=== PATIENT | female | born 1970 | race Caucasian/White ===

== ENCOUNTER 2018-06-08 10:00 | Outpatient (CLI) | payer MEDICARE, MEDICAID, SELFPAY | END 2018-06-08 10:01 | PROVIDERS: PCP Family Medicine; Visit Provider Student in an Organized Health Care Education/Training Program | DX: M16.12 Unilateral primary osteoarthritis, left hip (principal) | CPT/HCPCS: 99213 ==

== ENCOUNTER 2018-06-18 07:39 | Outpatient (CLI) | payer MEDICARE, MEDICAID, SELFPAY ==
--- NOTE | 2018-06-18 08:41 | DI.MRI_ITS ---
SYMPTOMS/DIAGNOSIS: LEFT HIP PAIN, FEMOROACETABULAR IMPINGEMENT, LEFT IP, M25.852 MRI OF THE PELVIS AND LEFT HIP: Comparison is made with plain films dated April,. T1 and fat-suppressed T2 axial, T1 and STIR coronal sequences were performed with a field of view including both hips. Fat-suppressed T2 sagittal and fat-suppressed proton density coronal sequences were performed through the left hip. The marrow signal is normal throughout. No joint effusions are seen. The muscular signal and tendon signal are also normal. The bladder is unremarkable. The patient is status post hysterectomy. No labral defects or cartilage defects are identified. IMPRESSION: Negative MRI of the pelvis and left hip.
== END 2018-06-18 07:59 ==
PROVIDERS: PCP Family Medicine; Visit Provider Student in an Organized Health Care Education/Training Program
DX: M25.552 Pain in left hip (principal); M25.852 Other specified joint disorders, left hip
CPT/HCPCS: 73721

== ENCOUNTER 2019-02-26 11:42 | Outpatient (REF) | payer MEDICARE, MEDICAID, SELFPAY ==
[2019-02-26 22:10] LABS: HCT 43.1 % (36.0-46.0); HGB 14.2 g/dL (12.0-15.5); Mean Corp. HGB Concentration 32.9 g/dL (32.0-36.0); Mean Corpuscular Volume 90.9 fL (80-95); Mean Platelet Volume 11.5 fL (8.0-11.0); Platelet Count 256 x1000/uL (130-400); RBC 4.74 m/cumm (4.00-5.20); RBC Distribution Width 13.5 % (11.7-14.6); White Blood Cell Count 5.74 k/cumm (4.4-10.8)
[2019-02-26 22:23] LABS: ALT 27 U/L (12-78); AST 21 U/L (15-37); Alkaline Phosphatase 105 U/L (46-116); Anion Gap 12.6 mmol/L (3-11); BUN 11 mg/dL (7-18); Bilirubin, Total 0.4 mg/dL (0.2-1.0); CO2 28.4 mmol/L (21.0-32.0); CREATININE 0.99 mg/dL (0.55-1.02); Calcium 9.5 mg/dL (8.5-10.1); Chloride 101 mmol/L (98-107); Cholesterol 278 mg/dL (50-200); Estimated GFR 59.87 (mL/min/1.73m2); Glucose 72 mg/dL (70-100); HDL Cholesterol 70 mg/dL (40-60); LDL CHOLESTEROL 176 mg/dL (<100); Sodium 142 mmol/L (136-145); Total Protein 7.2 g/dL (6.4-8.2); Triglyceride 124 mg/dL (30-150)
== END 2019-02-26 12:02 ==
LOC: NCHCN 11:42
PROVIDERS: PCP Family Medicine; Visit Provider Specialist/Technologist Athletic Trainer
DX: E03.9 Hypothyroidism, unspecified (principal); Z01.812 Encounter for preprocedural laboratory examination
CPT/HCPCS: 80053; 80061; 83721; 85027

== ENCOUNTER 2019-05-16 10:54 | Outpatient (REF) | payer MEDICARE, MEDICAID, SELFPAY ==
[2019-05-16 21:02] LABS: HCT 41.6 % (36.0-46.0); HGB 13.7 g/dL (12.0-15.5); Mean Corp. HGB Concentration 32.9 g/dL (32.0-36.0); Mean Corpuscular Hemoglobin 30.1 pg (27.0-33.0); Mean Corpuscular Volume 91.4 fL (80-95); Mean Platelet Volume 11.4 fL (8.0-11.0); Platelet Count 268 x1000/uL (130-400); RBC 4.55 m/cumm (4.00-5.20); White Blood Cell Count 4.96 k/cumm (4.4-10.8)
[2019-05-16 21:23] LABS: ALT 24 U/L (12-78); AST 12 U/L (15-37); Albumin 4.1 g/dL (3.4-5.0); Alkaline Phosphatase 94 U/L (46-116); Anion Gap 11.8 mmol/L (3-11); BUN 11 mg/dL (7-18); Bilirubin, Total 0.2 mg/dL (0.2-1.0); CO2 25.2 mmol/L (21.0-32.0); CREATININE 0.89 mg/dL (0.55-1.02); Calculated LDL 175 mg/dL; Chloride 106 mmol/L (98-107); Cholesterol 254 mg/dL (50-200); Glucose 79 mg/dL (70-100); HDL Cholesterol 63 mg/dL (40-60); Potassium 4.2 mmol/L (3.5-5.1); Sodium 143 mmol/L (136-145); Total Protein 7.1 g/dL (6.4-8.2); Triglyceride 80 mg/dL (30-150)
[2019-05-16 21:34] LABS: Lipase 87 U/L (73-393)
== END 2019-05-16 11:14 ==
LOC: NCHCN 10:54
PROVIDERS: PCP Family Medicine; Visit Provider Family Medicine
DX: R10.9 Unspecified abdominal pain (principal)
CPT/HCPCS: 80053; 80061; 83690; 83721; 85027

== ENCOUNTER → 2019-11-07 09:37 | Outpatient (BNVA) | payer MEDICARE, MEDICAID, SELFPAY | PROVIDERS: PCP Family Medicine; Referring Provider Family Medicine; Visit Provider Physical Therapy Assistant | DX: K21.9 Gastro-esophageal reflux disease without esophagitis (principal); R10.13 Epigastric pain | CPT/HCPCS: 99213 ==

== ENCOUNTER 2019-11-08 10:35 | Day surgery (SDC) | payer MEDICARE, MEDICAID, SELFPAY ==
[2019-11-07 11:06] VITALS: BP 143/99; PULSE 73; RESP 18; TEMP 36.5
[2019-11-08 10:54] VITALS: BP 128/92; PULSE 78; RESP 16; TEMP 36.5; O2SAT 97
[2019-11-08] MEDS: Lactated Ringers 1,000 ML 80 ML IV (11:13)
--- NOTE | 2019-11-08 12:08 | W.PM.DSUDISC ---
Discharge Plan Disposition Patient Disposition: HOME Condition: Good Discharge Details Reason For Visit: EGD Attending Provider: Daniella Oglesby Primary Care Provider: Elvira Curiel Home Meds and New Rx's Prescriptions: Continued omeprazole 40 mg capsule,delayed release(DR/EC) 40 mg PO BID RF: 0 bismuth subsalicylate [Pepto-Bismol] 262 mg/15 mL suspension 524 mg PO Q30-60M PRNRF: 0 gabapentin 600 MG tablet 600 mg PO BID RF: 0 ropinirole 1 MG tablet 1 mg PO HS RF: 0 ibuprofen 800 MG tablet 800 mg PO TID RF: 0 amitriptyline 50 MG tablet 50 mg PO HS RF: 0 acetaminophen 500 MG tablet 1,000 mg PO Q 8 HR RF: 0 promethazine 25 MG tablet 25 mg PO PRN RF: 0 Women's Daily Formula 1 EACH tablet 1 tab-cap PO DAILY RF: 0 lidocaine 15 GM cream 15 gm Topical Q4H PRN 30 Days Qty: 1 RF: 5 citalopram [Celexa] 20 mg tablet 20 mg PO DAILY RF: 0 methylphenidate HCl [Ritalin] 20 mg tablet 20 mg PO BID RF: 0 Discharge Instructions Additional Instructions: Findings: Your EGD looked normal. Routine biopsies were done. Follow up: My office will contact you with biopsy results and make further plans as indicated. Please call if you develop: fevers >101.5 Nausea or Vomiting Abdominal pain that is not transient DAY SURGERY UNIT POST EGD INSTRUCTIONS 1. Because there will be medication in your system for the next 24 hours, you may feel a little sleepy. Your coordination will be affected. Therefore: a. Do not drive or operate dangerous equipment for 24 hours. b. Do not drink alcohol beverages for 24 hours (not even beer). c. Plan to go home and rest for the day. 2. Generally there are no restrictions on your activity after a day or so has gone by, but you may feel a bit fatigued for a few days. 3 After you arrive home you may have a light meal and return to a normal diet as you can tolerate it without feeling sick to your stomach. 4. After surgery, you may feel pain or discomfort. This should be only transient, but if it persists please contact your doctor. 5. If there are any questions regarding the findings of your procedure, please feel free to contact your doctor. 6. If you are unable to contact your doctor with a problem, contact the hospital at [phone]. 7. Continue all your regular medications unless directed otherwise. I understand the above instructions and have no questions. Signature of Patient or Responsible Adult Escort Date/Time Name of Responsible Adult Escort Signature of Nurse Date/Time Activity:: Activity as Tolerated Diet:: As Tolerated Discharge Orders Discharge Orders: Discharge Order (Routine); Ordered 11/08/19 Ordered By: Daniella Oglesby DS: Diagnosis Discharge Diagnosis (1) Epigastric pain: Status: Acute
--- NOTE | 2019-11-08 12:30 | STOM_PTH ---
PATIENT: Sade Zavala LOC: [facility] U#:[id number] AGE/SX: 49/F ROOM: RE11/08/[address]: Daniella Oglesby MD : 1970 BED: DIS: 11/08/2019 SPEC #: [id number] RECD: 11/08/19 13:14 STATUS: QAMAR REQ #: [id number] ROSALVA: 11/08/19 12:[address]: Daniella Oglesby DEPT: Surgical Specimen RECD BY: Gali Gardner ENTERED: 11/08/19 13:15 SP TYPE: STOMACH OTHR DR: Elvira Curiel Tissues: 1 - BIOPSY BOWEL 2 - STOMACH BIOPSY Procedures: GROSS AND MICRO LEVEL 4 IMMUNOPEROXIDASE STAIN Comments: [id number]
[2019-11-08 13:13] VITALS: BP 130/89; PULSE 66; RESP 16; TEMP 36.6; O2SAT 96
--- NOTE | 2019-11-08 14:53 | ENDO_ITS ---
43DATE OF PROCEDURE: November 08, 2019 PREOPERATIVE DIAGNOSIS: Epigastric pain. POSTOPERATIVE DIAGNOSIS: Normal EGD. PROCEDURE: EGD with duodenal and gastric biopsies. SURGEON: Daniella Oglesby M.D. ANESTHESIA: General. INDICATIONS: This is a 49-year-old woman who complains of epigastric pain, nausea and vomiting. She has reportedly had a normal CT scan. Results have been requested. The pain starts shortly after ea ting and can last for up to an hour. She does drink up to four 12-packs of Diet Coke daily. PROCEDURE: She was placed in the left lateral decubitus position. Propofol was titrated to sedation . The scope was advanced into her esophagus under direct visualization and down into the stomach and duodenum. There was no duodenitis or ulcers noted. The second portion of the duodenum was biopsied to evaluate for celiac disease. The stomach itself appeared normal, including on retroflex view of the fundus and lesser curvature. There was some minimal hypertrophic gastritis. Routine biopsies we re performed from the gastric body to check for H. pylori. The GE junction exhibited no masses, Lua ett's, inflammation or significant strictures. The air was suctioned from the stomach and the scope withdrawn with no esophageal lesions found. She tolerated the procedure well and was stable to [facility]. I will contact her with biopsy results and consider further evaluation as indicated. A gallbladder u ltrasound may be helpful. cc: Elvira Curiel M.D.
== END 2019-11-08 13:30 | disposition home or self-care (01) ==
PROVIDERS: PCP Family Medicine; Visit Provider Surgery
PROC: 0DJ68ZZ Inspection of Stomach, Via Natural or Artificial Opening Endoscopic (ICD-10-PCS; CPT 43235; principal; 2019-11-08 12:00)
DX: C82.83 Other types of follicular lymphoma, intra-abdominal lymph nodes (principal); K31.89 Other diseases of stomach and duodenum; R10.13 Epigastric pain; R19.02 Left upper quadrant abdominal swelling, mass and lump; K21.9 Gastro-esophageal reflux disease without esophagitis
CPT/HCPCS: 43239; 88305; 88361

== ENCOUNTER 2020-10-16 17:26 | Outpatient (REF) | payer MEDICARE, MEDICAID, SELFPAY ==
[2020-10-19 11:31] LABS: COVID-19 RT-PCR UVMMC Result Negative (Negative)
== END 2020-10-16 17:46 ==
LOC: NCHCN 17:26
PROVIDERS: PCP Family Medicine; Visit Provider Nurse Practitioner Family
DX: M79.18 Myalgia, other site (principal)
CPT/HCPCS: U0003

== ENCOUNTER → 2024-05-17 09:13 | Outpatient (BNVA) | payer MEDICARE, SELFPAY | PROVIDERS: PCP Family Medicine; Referring Provider Family Medicine; Visit Provider Physical Therapy Assistant | DX: K21.9 Gastro-esophageal reflux disease without esophagitis (principal); R10.13 Epigastric pain | CPT/HCPCS: 99203 ==

== ENCOUNTER 2024-05-21 10:44 | Day surgery (SDC) | payer MEDICARE, SELFPAY ==
--- NOTE | 2024-05-20 21:12 | PDOC.DSDIS_ITS ---
Date of service: 05/21/24 Time of Service: 15:57 Discharge Plan Disposition Patient Disposition: Home Condition: Good Discharge Details Attending Provider: Ayesha Gunderson Primary Care Provider: Elvira Curiel Home Meds and New Rx's Prescriptions: New pantoprazole [Protonix] 40 mg tablet,delayed release (DR/EC) 40 mg PO DAILY Qty: 90 6RF sucralfate [Carafate] 1 gram tablet 1 g PO QACHS Qty: 120 12RF Continued omeprazole 40 mg capsule,delayed release(DR/EC) 40 mg PO BID bismuth subsalicylate [Pepto-Bismol] 262 mg/15 mL suspension 524 mg PO Q30-60M PRN sucralfate [Carafate] 1 gram tablet 1 g PO QACHS gabapentin 600 MG tablet 600 mg PO BID ropinirole 1 MG tablet 1 mg PO HS acetaminophen 500 MG tablet 1,000 mg PO Q 8 HR promethazine 25 MG tablet 25 mg PO PRN clonazepam 1 mg tablet Patient Comments: TAKE 1 TABLET BY MOUTH TWICE DAILY DIRECTED FOR ANXIETY Discharge Instructions Additional Instructions: DSU Colonoscopy Post- Op Instructions Instructions for Everyone who is given Anesthesia: For your safety, please do the following for the next twenty-four (24) hours: *Do Not operate a motor vehicle (car, truck, motorcycle, etc.) *Do Not drink alcoholic beverages or use any recreational drugs for the first 24 hours or while taking pain medications. The medications in your body may have a reaction that can be dangerous. *Do Not make any important decisions or sign any important papers. Findings: hiatal hernia/duodenitis/bile reflux gsatritis/hemorrhoids Follow up: Dr. Gunderson in 2-3 wks in office to review bx results and CT scans -meds- Rx protonix and carafate need f/u CT scans. The hospital will call you to schedule. 1. No lifting over 20 pounds or strenuous activity for the first 24 hours after your procedure. After 24 hours there are no restrictions on your activity but you may feel fatigued for a few days. 2. After you arrive home you may have a light meal and return to your normal diet as you can tolerate it without feeling sick to your stomach. 3. You may have a bloated, gaseous feeling in your belly (abdomen) after a colonoscopy. Passing gas and belching will help. Walking or lying down on your left side with your knees flexed may relieve the discomfort. Call the office at [phone] (Office) or [phone] (Hospital) right away if you notice any of the following: a.Vomiting of blood or ?coffee ground stools?. b.Rectal bleeding 1Tbsp, blood clots or continuous bleeding. c.Severe belly (abdominal) pain. d.A hard distended belly (abdomen) and an inability to pass gas. 4. Please don?t expect to have a normal BM (bowel movement) for 2-3 days after your procedure. 5. If there are questions regarding the findings of your procedure, please contact your doctor 6. If you are unable to contact your doctor with a problem, contact the hospital at [phone]. 7. Continue all your regular medications unless directed otherwise. I understand the above instructions and have no questions. Signature of Patient or Adult Escort Name of Responsible Adult Escort Signature of Nurse Date/Time Stand Alone Forms: Anesthesia Discharge Kathrin Pittman (LAUREU) Activity:: see above Diet:: see above Discharge Orders Discharge Orders: Discharge Order (Routine); Ordered 05/21/24 Ordered By: Ayesha Gunderson DS: Diagnosis Discharge Diagnosis (1) GERD (gastroesophageal reflux disease): Status: Chronic (2) Crohn's disease: Status: Chronic (3) Hypothyroidism: (4) Asthma: (5) COPD (chronic obstructive pulmonary disease): (6) Obstructive sleep apnea: (7) S/P hysterectomy: (8) Follicular lymphoma: Status: Acute (9) Smoker: Status: Acute Asessment and Plan: The patient is seen and examined after their colonoscopy.? The patient has been able to pass gas.? They are not having abdominal pain.? They have been able to tolerate liquids and a snack.? They do not have any nausea or vomiting.? They a re not having any chest pain or shortness of breath.??? They are not having any rectal bleeding. Their vital signs have been stable-see nursing notes. We discussed findings during their colonoscopy, and any biopsies that were done/polyps that were removed. The patient will be sent a letter with any biopsy results, and when to repeat the colonoscopy.-see discharge instructions. Patient was given explicit instructions to follow-up regarding colonoscopy-refer to discharge instructions.? We reviewed resumption of medications. Patient verbalized understanding and discharged in stable and satisfactory condition- See nursing notes.
[2024-05-21 11:15] VITALS: BP 134/95; PULSE 68; RESP 16; TEMP 36.5; O2SAT 97
[2024-05-21] MEDS: Lactated Ringers 1,000 ML 80 ML IV (11:18)
--- NOTE | 2024-05-21 11:22 | W.ANESPRE ---
General Info Date of Service Date Performed: 05/21/24 Height: 5 ft 5 in Weight: 90.2 kg Body Mass Index (BMI): 33.0 Surgical Procedure: Operation Date: 05/21/24 10:50 Proposed Procedure Side Surgeon p Colonoscopy/Gastroscopy Ayesha Gunderson, DO Meds Allergies and Home Medications Allergies Allergy/AdvReac Type Severity Reaction Status Date / Time oxycodone Allergy Severe full body Verified 05/21/24 11:12 hives penicillin V potassium (From Allergy Severe Anaphylaxsi Verified 05/21/24 11:12 Pen-Vee K) s Home Medication ?Medication ?Instructions ?Recorded acetaminophen 500 mg tablet 1,000 mg PO Q 8 HR 10/26/17 gabapentin 600 mg tablet 600 mg PO BID 10/26/17 promethazine 25 mg tablet 25 mg PO PRN 10/26/17 ropinirole 1 mg tablet 1 mg PO HS 10/26/17 bismuth subsalicylate 262 mg/15 mL 524 mg PO Q30-60M PRN 11/07/19 oral suspension (Pepto-Bismol) omeprazole 40 mg capsule,delayed 40 mg PO BID 11/07/19 release sucralfate 1 gram tablet (Carafate) 1 g PO QACHS 05/17/24 clonazepam 1 mg tablet mg 05/21/24 Current Visit Medications: Current Medications Generic Name Dose Route Start Last Admin Trade Name Freq PRN Reason Stop Dose Admin Hyoscyamine Sulfate 0.125 mg 05/21/24 09:10 Hyoscyamine 0.125 Mg Sl/Oral/Chew SL 06/20/24 09:09 DIRECTED PRN Ringer's Solution 1,000 mls @ 80 mls/hr 05/21/24 06:00 05/21/24 11:18 IV 05/21/24 23:59 80 mls/hr INFUSION SJ Administration IV Miscellaneous Supplies 1 each 05/21/24 06:00 Iv Access IV 05/21/24 23:59 DIRECTED SJ Ondansetron HCl 4 mg 05/21/24 09:10 Ondansetron 4 Mg/2 Ml Vial IVP 06/20/24 09:09 Q4H PRN PRN Nausea / Vomiting Sodium Chloride 0 ml 05/21/24 06:00 Normal Saline Flush 10 Ml Syr IV 05/21/24 23:59 PRN PRN Sodium Chloride 0 ml 05/21/24 06:00 Normal Saline 10 Ml Vial IJ 05/21/24 23:59 DIRECTED PRN Sterile Water 0 ml 05/21/24 06:00 Water,Injection,Sterile 10 Ml Vial IJ 05/21/24 23:59 DIRECTED PRN PFSH Active Problems Active Problems: Problem Status Onset Code Smoker Acute F17.200 Follicular lymphoma Acute C82.90 Crohn's disease Chronic K50.90 GERD (gastroesophageal reflux disease) Chronic K21.9 Epigastric pain Acute R10.13 Medical History Medical History COPD (chronic obstructive pulmonary disease) On 2L 02 continuous Hypothyroidism Pt. is unsure if she has this PTSD (post-traumatic stress disorder) Carpal tunnel syndrome Spondylosis Asthma Anxiety Restless leg syndrome Obstructive sleep apnea Does not use device Hip pain Neck pain, chronic Metal and rods in neck per pt. ADD (attention deficit disorder) Surgical History Surgical History S/P hysterectomy Status post breast reduction Tobacco Smoking/Tobacco Use Status: Current every day Tobacco Type: cigarettes Alcohol Alcohol Intake: never Substance Use Substance use: Daily Substance use type: marijuana Vital Signs and Lab Results Vital Signs Most Recent Vital Signs in EMR: Most Recent Vital Signs Temp Pulse Resp BP Pulse Ox 36.5 C 68 16 134/95 H 97 05/21/24 11:15 05/21/24 11:15 05/21/24 11:15 05/21/24 11:15 05/21/24 11:15 Lab Results Blood Type / Crossmatch: No Data to Display Complete Blood Count: No Data to Display Complete Metabolic Panel: No Data to Display Liver Function Panel: No Data to Display Coagulation Panel: No Data to Display Cardiac Panel: No Data to Display Arterial Blood Gas: No Data to Display Venous Blood Gas: No Data to Display Pancreas Panel: No Data to Display Thyroid Panel: No Data to Display Infectious Disease: No Data to Display Blood Cultures: No Data to Display Toxicology Panel: No Data to Display Panel: No Data to Display Anesthesia Assessment and Plan Anesthesia History Personal History: No History of Anesthesia Complications Family History: No Family History of Anesthesia Complications Exercise Tolerance Exercise Tolerance: Metabolic Equivalents>4 Pertinent Negatives Pertinent Negatives: No Major Cardiovascular Symptoms or Complaints Cardiac & Pulmonary Exam Cardiac Exam: Normal S1/S2 Heart Sounds Pulmonary Exam: Clear Bilateral Breath Sounds Implantable Cardiac Device Does patient have a Pacemaker or an ICD?: No Airway Exam Known Difficult Airway: No Mallampati Class: 2 Mouth Opening: Normal (> 3cm) Thyromental Distance: Greater than 3 cm Neck Range of Motion: Full ROM Neck Circumference: Normal Teeth Condition: Normal Dentition (Reports some radiation damage) ASA Classification ASA Score: ASA 4 Emergency Case?: No NPO Status NPO Status: NPO Clears >2 hours, Solids >8 hours Status Status: Not Per Patient Anesthesia Plan Resuscitation Status: Full Code Anesthesia Technique: General Anesthesia Airway Planned: Natural Airway Monitors Used: Standard Monitors Preoperative Comments:: Reports GERD is well controlled on medication, O2 at night for years, has not followed up with medical team since moving to [place].
[2024-05-21 11:24] VITALS: BMI 33.0
--- NOTE | 2024-05-21 15:09 | BOWEL_PTH ---
PATIENT: Sade Zavala LOC: [facility] U#:[id number] AGE/SX: 53/F ROOM: RE05/21/[address]: Ayesha Gunderson : 1970 BED: DIS: 05/21/2024 SPEC #: [id number] RECD: 05/21/24 18:09 STATUS: QAMAR REQ #: [id number] ROSALVA: 05/21/24 15:[address]: Ayesha Gunderson DEPT: Surgical Specimen RECD BY: Gali Gardner ENTERED: 05/21/24 18:13 SP TYPE: Bowel OTHR DR: Elvira Curiel Tissues: 1 - BIOPSY BOWEL 2 - STOMACH BIOPSY 3 - STOMACH BIOPSY 4 - ESOPHAGUS BIOPSY 5 - ESOPHAGUS BIOPSY 6 - BIOPSY BOWEL 7 - BIOPSY BOWEL 8 - BIOPSY BOWEL 9 - BIOPSY BOWEL 10 - BIOPSY BOWEL Procedures: GROSS AND MICRO LEVEL 4 Comments: [id number]
[2024-05-21 15:38] VITALS: BP 144/96; PULSE 77; RESP 16; TEMP 36.1; O2SAT 95
--- NOTE | 2024-05-21 15:42 | W.PM.ENDDOP ---
Date of service: 05/21/24 Time of Service: 15:42 Endoscopy Report DATE OF PROCEDURE: 05/21/24 PRE-OP DIAGNOSIS: hx of gsatric lymphoma POST-OP DIAGNOSIS: other (2 cm sliding-type hiatal hernia/bile reflux gastritis/duodenitis) SURGEON: Ayesha Gunderson ANESTHESIA TYPE: General:No Airway ESTIMATED BLOOD LOSS: 2 PATHOLOGY: other COMPLICATIONS: None DISPOSITION: same day PROCEDURE DESCRIPTION: Informed consent was obtained from the pt; explaining the benefits and Risks: bleeding, infections, perforations {which could require surgery or antibiotics and prolonged hospital stay}, or ostomy, and complications of anaesthesia, errol aspiration). The patient was take to the procedure room and placed in a supine position. Monitors were applied and a time out was done. The patients name, date of , procedure type, allergies to medications and metal in their body was reviewed. A bite block was placed and the patient was sedated. Once sedated and comfortable an Olympus gastroscope (see RN notes for scope #) was advanced through the oropharynx which was grossly normal, and passed into the esophagus. The proximal and mid-esophagus were normal. The distal esophagus does not show any: dilation/strictures/varices/erosions or ulcers/bleeding noted. The scope was advanced into the stomach and through the pylorus into the proximal jejunum. The duodenum was noted to be mild duodenitis. Biopsies were done of the duodenal bulb.. The scope was retracted back into the stomach and biopsies were taken of the antrum. There were no /gastropathy/ ulcers/masses noted. Bile reflux gastritis is noted. There is diffuse mild erythema in the distal one third of the stomach. The scope was retroflexed. The cardia and fundus were noted to be normal. There is mild 2 cm sliding-type hiatal hernia noted. The scope was retracted back into the esophagus and biopsies were done of the GE junction (in all 4 quadrants) and distal esophagus (2cm above the GE junction) to rule out Beth's. All specimens are retrieved and no bleeding was noted. The scope was removed and the patient was woken up and taken back to [facility] in stable condition.
--- NOTE | 2024-05-21 15:44 | W.COLOREPORT ---
Date of service: 05/21/24 Time of Service: 15:44 Colonoscopy Report Date of procedure: 05/21/24 Pre-op diagnosis general: History of Crohn's Post-op diagnosis procedure note: other (Internal/external hemorrhoid) Surgeon: Ayesha Gunderson Anesthesia Type: General:No Airway Estimated blood loss (mL): 2 Pathology: other Complications: None Disposition: same day Prep: Miralax/Dulcolax Retraction Time: 10 Procedure Description: After informed consent was obtained, explaining risks of the procedure, including but not limits to: bleeding, infections, complications of anesthesia, perforations (which may require antibiotics and /or surgery and stay in the hospital), and abdominal pain/cramping. The patient was taken to the procedure room and placed in a left decubitous position. Monitors were applied and a time out was done. The patients name, date of , procedure, allergies to medications and metal in their body was reviewed. The patient was then sedated. Once sedated and comfortable a rectal exam was done. External exam mild external hemorrhoids with no thrombosis or acute inflammation. Internal exam revealed a normal sphincter tone and no palpable masses. The previously lubricated Olympus scope was then introduced (see RN notes for scope number) and retrofelexed. Great to x 1: Internal hemorrhoids were identified. The scope was then advanced to the cecum without difficulty. The TI and appendiceal orifice were identified. The scope was then slowly retracted over 10 minutes back into the rectum. Polyps: None. Diverticula: None. The mucosa is pink and healthy w/ a normal vascular pattern. Biopsies are taken in the cecum/80 cm / 60 cm/30 cm and rectum. There is no stigmata of chronic inflammatory bowel disease. The scope was removed, and the patient was woken up and taken back to Same day surgery in stable condition. The patient tolerated the procedure well and there were no immediate complications. Follow up: The patient should follow up in 10 years, path pending,, unless they develop changes in bowel habits or other new gastrointestinal complaints. Table Grove Bowel Prep Table Grove Bowel Prep Right Colon: 3 Left Colon: 3 Transverse Colon: 3 Total Score: 9
[2024-05-21 16:22] VITALS: BP 158/104; PULSE 66; RESP 16; TEMP 36; O2SAT 98
[2024-05-21] MEDS: Benzocaine/Menthol LOZG 15/BOX 1 EACH SUC (16:29)
--- NOTE | 2024-05-23 07:37 | W.ANESPOSTOP ---
Postoperative Evaluation Date, Time and Location Date Performed: 05/21/24 Time Performed: 14:30 Patient Location: Day Surgery Unit Vital Signs Most Recent Imported Vital Signs: Most Recent Vital Signs Temp Pulse Resp BP Pulse Ox 36 C L 66 16 158/104 H 98 05/21/24 16:22 05/21/24 16:22 05/21/24 16:22 05/21/24 16:22 05/21/24 16:22 Pain Score Most Recent Pain Score: Most Recent Pain Score Pain Level 0 05/21/24 16:22 Assessment Mental Status: Awake (Alert & Oriented to Patient Baseline) Airway and Respiratory Function: Patent airway with normal (patient baseline) respiratory exam Cardiovascular Function: Hemodynamically Stable Hydration Status: Adequately Hydrated Nausea & Vomiting: No Nausea or Vomiting Pain: Pt. Denies Any Pain Peripheral Nerve Block: Patient did not receive a nerve block
== END 2024-05-21 16:32 | disposition home or self-care (01) ==
LOC: SUR 10:44
PROVIDERS: PCP Family Medicine; Visit Provider Surgery
PROC: (CPT 45378; principal; 2024-05-21 10:45)
DX: G47.33 Obstructive sleep apnea (adult) (pediatric); F17.200 Nicotine dependence, unspecified, uncomplicated; R10.84 Generalized abdominal pain; K64.8 Other hemorrhoids; K64.0 First degree hemorrhoids; K44.9 Diaphragmatic hernia without obstruction or gangrene; K29.80 Duodenitis without bleeding; K29.60 Other gastritis without bleeding
CPT/HCPCS: 45378; 43239; 88305; J2001; J2250; J2704

== ENCOUNTER 2024-05-31 00:25 | Outpatient (CLI) | payer MEDICARE, SELFPAY ==
--- OUTSIDE RECORDS SUMMARY | 2024-05-31 00:41 | XMS_ITS | Continuity of Care Document ---
Author Organization [place] - [facility] Address [address] [place] [address] Assessment Encounter Date Assessment Date Assessment LastModified by Organization Details LastModified Time 05/15/2024 05/15/2024 The total time devoted to today's encounter, including both the vxrb-yj-jhcx time with the patient and/or family/caregi david and hum-hrrl-mg-f josep time I personally spent is 40 minutes. lbisson Not available 05/15/2024 08:42:30 Plan of Treatment Reminders Order Date Submit Date Provider Last Modified By Organization Details Last Modified Time Details Appointments Nurse Visit 2023 11:00A M Not available Not available Not available Office Visit 2023 11:00A M Not available Not available Not available Annual Wellness Exam 2023 02:50P M Not available Not available Not available Lab None recorded. Referral [facility]ent er[facility] [address], [place], [address], 05/15/2024 09:25:18 Procedures colonosco py procedure (PROC) 2023 024 [facility], [address] , [place], [address], 05/29/2024 12:16:32 Surgeries esophagog astroduod enoscopy (SURG) 2023 024 [email or web address] [facility], [address], [place], [address], 05/15/2024 08:46:21 Imaging None recorded. Medication Orders clonazepa m 1 mg tablet 2023 [facility]22578, [address], [place], [place], [id number], 05/15/2024 08:39:54 ondansetr on 4 mg disintegr ating tablet 2023 [facility] #33841, [address], [place], [place], [id number], 05/15/2024 08:19:13 omeprazol e 40 mg capsule,d elayed release 2023 024 [facility] #24910, [address], [place], [place], [id number], 05/15/2024 08:19:14 sucralfat e 1 gram tablet 2023 024 [facility]16053, [address], [phone], 05/15/2024 08:19:14 Patient TargetsNo targets recorded. Patient InstructionsNo instructions recorded. 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's disease Referring Physician: Autumn Curiel [facility], Encounter Date: 05/15/2024 EGD Referral for Gastric ulc er Referring Physician: Autumn Curiel [facility], Encounter Date: 05/15/2024 Problems Name Status Onset Date Resolution Date Notes Provider Name and Address Organization Details Recorded Time Essential hypertension Active 024 MAC WATSON RN null, [facility] 03/26/2024 12:29:59 Mixed hyperlipidemia Active 024 MAC WATSON RN null, [facility] 03/26/2024 12:30:40 Anxiety Active 024 MAC WATSON RN null, [facility] 03/26/2024 12:31:22 Depressive disorder Active 024 MAC WATSON RN null, [facility] 03/26/2024 12:31:32 Epigastric pain Active 024 Courtney Hodgson RN null, [facility] 05/13/2024 09:13:02 Chronic obstructive pulmonary disease Active 024 Courtney Hodgson RN null, [facility] 05/13/2024 12:36:17 Peripheral nerve disease Active 024 Courtney Hodgson RN null, [facility] 05/13/2024 12:36:51 Tobacco dependence syndrome Active 024 Courtney Hodgson RN null, [facility] 05/13/2024 12:37:03 Restless legs Active 024 Courtney Hodgson RN null, [facility] 05/13/2024 12:37:11 Gastric ulcer Active [address], [facility] [address] , [facility] 05/15/2024 08:16:50 Diarrhea Active [address], [facility] [address] , [facility] 05/15/2024 08:18:09 Crohn's disease Active [address], [facility] [address] , [facility] 05/15/2024 08:18:33 Anxiety disorder Active [address], [place], [address] , [facility] 05/15/2024 08:19:15 Attention deficit hyperactivity disorder Active [address], [facility] [address] , [facility] 05/15/2024 08:41:08 Gastroesophageal reflux disease Active Jose Trejo [facility], [facility] 05/29/2024 12:18:33 Problem Notes None recorded. Medical Equipment None Reported. Allergies Allergen ID Allergen Name Allergen Category Reaction Reaction Severity Criticality Documentation Date Start Date Code Code System Note Provider Name and Address Organization Details Recorded Time 76929 Oxycontin medicatio n itching moderate high 05/15/2024 24422 6 RxNorm AUTUMN CURIEL MD [address], [place], [address], [facility] 4 08:28:19 72414 hydromorp ruy medicatio n itching moderate high 05/15/2024 3423 RxPj CURIEL MD [address], [place], [address] , [facility] 4 08:28:46 29530 Medicinal product containin g penicilli n and acting as antibacte rial agent (product) medicatio n hives moderate high 05/15/2024 01682 05 SNOMED AUTUMN CURIEL MD [address], [place], [address] , [facility] 4 08:29:13 Medications Name Sig Start Date Stop Date Status Note LastModified by Organization Details LastModified Time Ritalin 20 mg tablet Take 1 tablet twice a day by oral route. active Not Available Not Available No t Available sucralfate 1 gram tablet Take 1 tablet 4 times a day by oral route as directed for 30 days. 2023 active Not Available Not Available Not Avai lable clonazepam 1 mg tablet Take 1 tablet twice a day by oral route as directed for 28 days, for anxiety. 2023 active Not Available Not Available Not Avai lable omeprazole 40 mg capsule,del ayed release Take 1 capsule every day by oral route as directed for 90 days, for GERD. 2023 active Not Available Not Available Not Avai lable pantoprazol e 40 mg tablet,jr yed release Take 1 tablet every day by oral route. active Not Available Not Available No t Available omeprazole 20 mg capsule,del ayed release Take 1 capsule every day by oral route. 05/15 completed Not Available Not Available Not Available ondansetron 4 mg disintegrat ing tablet Place 2 tablets twice a day by transling ual route as needed for 30 days, for nausa. 2023 active Not Available Not Available Not Avai lable Vitals Date Recorded Heart rate Oxygen saturation Oxygen saturation in Arterial blood by Pulse oximetry Provider Name and Address Organization Details Last Updated DateTime 05/15/2024 61 /min 97 % 97 % Kishan Camarena [facility] 05/15/2024 07:52:34 Date Recorded Body height Body mass index (BMI) Body weight Respiratory rate Systolic blood pressure Diastolic blood pressure Provider Name and Address Organization Details Last Updated DateTime 166.37 cm 33.7 kg/m2 23845.2 3 g 20 /min 150 mm[Hg] 91 mm[Hg] AUTUMN CURIEL MD [facility] [address], [place], [address] [place] [address] 08:30:10 Social History None recorded. Functional Status None recorded. Mental Status None recorded. Family History Nothing Reported. Medical History No medical history recorded. Gynecological HistoryNo gynecological history recorded. Obstetrics History GPAL:G 0 P 0 0 0 0 Past Encounters Encounter ID Performer Location Encounter Start Date Encounter Closed Date Diagnosis/Indication Diagnosis SNOMED-CT Code [id number] AUTUMN CURIEL MD [address] [address] 05/15/2024 07:32:23 05/15/2024 08:37:04 Gastric ulcer [id number] Crohn's disease 57520462 Anxiety disorder 5385216 06 Attention deficit hyperactivity disorder [id number] Health Concerns Section Related Observation LastModified by Organization Detai ls LastModified Time None Recorded Concern Status LastModified by Organization Details LastModified Time None Recorded Payers Encounter Date Sequence Insurance Name Policy Number Policy Gruber Covered Member ID Gruber Member ID Guarantor Name 05/15/2024 1 [facility] (MEDICARE REPLACEMENT/A DVANTAGE - PPO) Sade Zavala [id number] Sade Zavala Notes Date Note Type Note Provider Name and Address Organization Details Recorded Time 05/15/2024 text/html HPI Notes: Sade is a 53-year-old female who has been a longstanding patient in this clinic until about 3 to 4 years ago when she moved to [place]. She has recently returned to [place] and is now going to be staying here. She has a camper that she has not ritualized and is going to be living there with her dog. She is a longstanding smoker. She smokes approximately half a pack of cigarettes a day. She does not use any alcohol. She states that she uses marijuana may be 1-2 times a week. She does smoke that she is looking into using edibles. She is no longer drinking large quantities of Diet Coke. She states that she may have 1 or 2 Pepsi zeros week. She has been recently seen in the emergency room because she was having such severe abdominal cramping. She has been very nauseous she has been vomiting and she has a steady horrible burn in her gut. She has a longstanding history of having reflux disease and she has a history of Crohn's disease. She says since she has been back in these symptoms have been ongoing she has been having watery black diarrhea daily. She is not eating a lot of foods at this time she is trying to limit it because she is concerned about what is going to bother her stomach and does not know what she should be eating. The emergency room had put her on sucralfate twice a day and told her to take her omeprazole. She has not been taking the Ritalin which she has been on for many years since he returned to [place] because that she could not get it filled here. She also has been on clonazepam for many years for her anxiety she needs to get that refilled as well. She has not had any well exams since she left [place]. She does not do vaccines has not had any of her vaccines. Patient reports that she is fatigued, nauseous, poor appetite, coughing and short of breath. She has a history of having COPD from smoking. She has history of sleep apnea. She had a sleep study done when she was in [place] they told her she no longer needed CPAP but oxygen at night she is currently using home O2 they set that up through [facility] in [place] that has been transferred here. She does not have any swelling in her ankles she has not had any chest pain. AUTUMN CURIEL MD [address], [place], [address], [facility]. 05/15/2024 08:42:52 OBGyn Episode No OBEpisode recorded.
--- OUTSIDE RECORDS SUMMARY | 2024-05-31 00:41 | XMS_ITS | Data Portability ---
Author Organization [place] - [facility], [facility] Address [address] [place] [address] Assessment Encounter Date Assessment Date Assessment LastModified by Organization Details LastModified Time 05/15/2024 05/15/2024 The total time devoted to today's encounter, including both the ampj-fd-nhgd time with the patient and/or family/caregi david and jxu-eite-vj-f josep time I personally spent is 40 [...] recorded. Referral gastroent erologist referral 2023 024 [facility], [address], [place], [address], 05/15/2024 09:25:18 Procedures colonosco py procedure (PROC) 2023 024 KATELYNN [facility], [address] [place], [address], 05/29/2024 12:16:32 Surgeries esophagog astroduod enoscopy (SURG) 2023 024 [email or web address] [facility], [address], [place], [address], 05/15/2024 08:46:21 Imaging None recorded. Medication Orders clonazepa m 1 mg tablet 2023 [facility]18611, [address], [place], [place], [id number], 05/15/2024 08:39:54 ondansetr on 4 mg disintegr ating tablet 2023 [facility] #91605, [address], [place], [place], [id number], 05/15/2024 08:19:13 omeprazol e 40 mg capsule,d elayed release 2023 [facility] #84312, [address], [place], [place], [phone], 05/15/2024 08:19:14 sucralfat e 1 gram tablet 2023 024 [facility] #84161, [address], [place], [place], [phone], 05/15/2024 08:19:14 Patient TargetsNo targets recorded. Patient InstructionsNo instructions recorded. 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 Problems Name Status Onset Date Resolution Date Notes Provider Name and Address Organization Details Recorded Time Essential hypertension Active 024 MAC WATSON RN null, [facility] 03/26/2024 12:29:59 Mixed hyperlipidemia Active 024 MAC WATSON RN null, [facility] 03/26/2024 12:30:40 Anxiety Active 024 MAC WATSON RN null, [facility] 03/26/2024 12:31:22 Depressive disorder Active 024 MAC WATSON RN null, [facility] 03/26/2024 12:31:32 Epigastric pain Active 024 Courtney Hodgson RN null, [facility] 05/13/2024 09:13:02 Chronic obstructive pulmonary disease Active 024 Courtney Hodgson RN null, [facility] 05/13/2024 12:36:17 Peripheral nerve disease Active 024 Courtney Hodgson RN null, [facility] 05/13/2024 12:36:51 Tobacco dependence syndrome Active 024 Courtney Hodgson RN null, [facility] 05/13/2024 12:37:03 Restless legs Active 024 Courtney Hodgson RN null, [facility] 05/13/2024 12:37:11 Gastric ulcer Active 024 AUTUMN CURIEL MD [address], [place], [address] , [facility] 05/15/2024 08:16:50 Diarrhea Active [address], [place], [address] , [facility] 05/15/2024 08:18:09 Crohn's disease Active [address], [place], [address] , [facility] 05/15/2024 08:18:33 Anxiety disorder Active [address], [place], [address] , [facility] 05/15/2024 08:19:15 Attention deficit hyperactivity disorder Active [address], [place], [address] , [facility] 05/15/2024 08:41:08 Gastroesophageal reflux disease Active Jose Trejo francois, [facility] 05/29/2024 12:18:33 Problem Notes None recorded. Medical Equipment None Reported. Allergies Allergen ID Allergen Name Allergen Category Reaction Reaction Severity Criticality Documentation Date Start Date Code Code System Note Provider Name and Address Organization Details Recorded Time 96732 Oxycontin medicatio n itching moderate high 05/15/2024 55293 6 RxNorm MD [address]y [address], [place], [address], [facility] 4 08:28:19 88647 hydromorp ruy medicatio n itching moderate high 05/15/2024 3423 RxRadharm MD [address], [place], [address], [facility] 4 08:28:46 17119 Medicinal product containin g penicilli n and acting as antibacte rial agent (product) medicatio n hives moderate high 05/15/2024 58523 05 SNOMED MD [address]y [address], [place], [address], [facility] 4 08:29:13 Medications Name Sig Start [...] 05/15/2024 61 /min 97 % 97 % [facility] 05/15/2024 07:52:34 Date Recorded Body height Body mass index (BMI) Body weight Respiratory rate Systolic blood pressure Diastolic blood pressure Provider Name and Address Organization Details Last Updated DateTime 166.37 cm 33.7 kg/m2 66679.2 3 g 20 /min 150 mm[Hg] 91 mm[Hg] AUTUMN CURIEL MD [facility] [address], [place], [address] [place] [address] 08:30:10 Social History None recorded. Functional Status None recorded. Mental Status None recorded. Family History Nothing Reported. Medical History No medical history recorded. Gynecological HistoryNo gynecological history recorded. Obstetrics History GPAL:G 0 P 0 0 0 0 Past Encounters Encounter ID Performer Location Encounter Start Date Encounter Closed Date Diagnosis/Indication Diagnosis SNOMED-CT Code [id number] AUTUMN CURIEL MD [address] [address] 05/15/2024 07:32:23 05/15/2024 08:37:04 Gastric ulcer 504891729 Crohn's disease 16004773 Anxiety disorder 3001107 06 Attention deficit hyperactivity disorder 232422132 Health Concerns Section Related Observation LastModified by Organization Detai ls LastModified Time None Recorded Concern Status LastModified by Organization Details LastModified Time None Recorded Advance Directives Directive None Recorded Payers Encounter Date Sequence Insurance Name Policy Number Policy Gruber Covered Member ID Gruber Member ID Guarantor Name 05/15/2024 1 [facility] (MEDICARE REPLACEMENT/A DVANTAGE - PPO) Sade Zavala [id number] Sade Zavala Notes Date Note Type Note Provider Name and Address Organization Details Recorded Time 05/15/2024 text/html HPI Notes: Sade is a 53-year-old female who has been a longstanding patient in this clinic until about 3 to 4 years ago when she moved to [place]. She has recently returned to [place] and is now going to be staying [...] for many years since he returned to [place] because that she could not get it filled here. She also has been on clonazepam for many years for her anxiety she needs to get that refilled as well. She has not had any well exams since she left [place]. She does not do vaccines has not had any of her vaccines. Patient reports that she is fatigued, nauseous, poor appetite, coughing and short of breath. She has a history of having COPD from smoking. She has history of sleep apnea. She had a sleep study done when she was in [place] they told her she no longer needed CPAP but oxygen at night she is currently using home O2 they set that up through [facility] in [place] that has been transferred here. She does not have any swelling in her ankles she has not had any chest pain. MD Cassy [address], [place], [address], [facility]. 05/15/2024 08:42:52 OBGyn Episode No OBEpisode recorded.
--- NOTE | 2024-05-31 07:00 | DI.CT_ITS ---
Exam(s) CT CHEST/ABD/PEL W EXAM: CT CHEST/ABD/PEL W CLINICAL HISTORY: epigastric pain/smoker/Hx lymphoma,crohns. TECHNIQUE: Imaging Protocol: Axial computed tomography images with coronal and sagittal reformatted images were created and reviewed CONTRAST MATERIAL: Intravenous: Omnipaque 350 Contrast volume:100 ml Oral: yes / COMPARISON: No exams were available for comparison FINDINGS: CHEST: Tracheobronchial tree: Patent. Pulmonary parenchyma: No consolidation or dominant measurable mass. Pleura: No effusion or pneumothorax. Mediastinum: Within normal limits. Aorta: Thoracic portion non-dilated. Pulmonary arteries: No visible emboli. Heart: No pericardial effusion. Bones: Unremarkable for age. No lytic or blastic lesions.No compression fractures. Hardware lower cervical spine. Soft tissues: Unremarkable. ABDOMEN and PELVIS: Liver: Mildly enlarged. Rkac-vw-fjbbnxrc hepatic steatosis. No measurable mass. Gallbladder and biliary tract: No evidence of stones or wall thickening. No biliary dilatation. Pancreas: Normal density, no abnormal calcifications or inflammatory process. Spleen: Normal. Kidneys: Normal size, contour and axis. No radiodense stones. No obstructive uropathy. No suspicious masses seen. Adrenal glands: No masses seen. Aorta: Abdominal portion non-dilated. Lymph nodes: Within normal limits. Soft tissues: Unremarkable. Bladder: Nearly empty. Unremarkable. Bowel: No obstruction or bowel wall thickening. Appendix normal. Normal quantity of stool. Peritoneal cavity: No ascites. No focal collection. No mesenteric inflammatory response. No free ai r. Bones: Posterior fusion hardware at L5-S1. Reproductive organs: Status post hysterectomy. IMPRESSION: No acute abnormality in the chest, abdomen or pelvis. RADIATION DOSE DELIVERED: Total DLP DATA REPOSITORY: All CT scans at this facility are submitted to the National Radiology Data Registry (NRDR) Dose Index Registry (DIR) with the [employer] (ACR). RADIATION OPTIMIZATION: All CT scans at this facility use at least one of these dose optimization te chniques: automated exposure control; mA and/or kV adjustment per patient size (includes targeted exa ms where dose is matched to clinical indication); or iterative reconstruction.
[2024-05-31] MEDS: Barium Sulfate 2% W/V-Berry Smoothie 450 ML BTL PO ×2 (07:50→07:51)
[2024-05-31] MEDS: Omnipaque 350 MG/ML 100 ML BTL IJ (09:36)
[2024-05-31] MEDS: Normal Saline - Diluent 50 ML VIAL IJ (09:37)
== END 2024-05-31 00:45 ==
LOC: DI 00:25
PROVIDERS: PCP Family Medicine; Visit Provider Surgery
DX: K21.9 Gastro-esophageal reflux disease without esophagitis (principal); J44.9 Chronic obstructive pulmonary disease, unspecified; E03.9 Hypothyroidism, unspecified
CPT/HCPCS: 74177; 71260; J3490

== ENCOUNTER → 2024-06-06 09:22 | Outpatient (BNVA) | payer MEDICARE, SELFPAY | PROVIDERS: PCP Family Medicine; Referring Provider Family Medicine; Visit Provider Surgery | DX: K50.90 Crohn's disease, unspecified, without complications (principal); R10.13 Epigastric pain; K21.9 Gastro-esophageal reflux disease without esophagitis | CPT/HCPCS: 99215 ==

== ENCOUNTER 2024-06-13 10:49 | Outpatient (REF) | payer MEDICARE, SELFPAY ==
[2024-06-13 14:36] LABS: Abs Immature Grans 0.01 10^3/uL (0.0-0.06); Absolute Basophil Count 0.04 10^3/uL (0.0-0.2); Absolute Eosinophil Count 0.06 10^3/uL (0.0-0.7); Absolute Lymphocyte Count 2.76 10^3/uL (1.2-3.4); Absolute Monocyte Count 0.48 10^3/uL (0.1-0.8); Absolute Neutrophil Count 4.27 10^3/uL (1.2-6.7); Basophils % 0.5 %; Eosinophils % 0.8 %; HCT 46.2 % (36.0-46.0); HGB 15.3 g/dL (11.2-15.7); Immature Grans % 0.1 %; Lymphocytes % 36.2 %; MCHC 33.1 % (32.0-36.0); MCV 94 fL (80-95); MPV 10.3 fL (8.0-11.0); Monocytes % 6.3 %; Neutrophils % 56.1 %; Platelet Count 309 10^3/uL (130-400); RBC 4.94 10^6/uL (3.93-5.22); RDW 13.9 % (11.7-14.6); RDW-SD 47.1 fL; WBC 7.62 10^3/uL (4.4-10.8)
[2024-06-13 15:01] LABS: ALT 57 U/L (14-59); AST 27 U/L (15-37); Albumin 4.1 g/dL (3.4-5.0); Alkaline Phosphatase 95 U/L (46-116); Anion Gap 10.7 mmol/L (3-11); BUN 13 mg/dL (7-18); Bilirubin, Total 0.56 mg/dL (0.2-1.0); CO2 29.3 mmol/L (21.0-32.0); CREATININE 1.1 mg/dL (0.55-1.02); Calcium 9.6 mg/dL (8.5-10.1); Calculated LDL 178 mg/dL (<100); Chloride 103 mmol/L (98-107); Cholesterol 293 mg/dL (<200); Estimated GFR 60.08 (mL/min/1.73m2); Glucose 89 mg/dL (74-106); HDL Cholesterol 95 mg/dL (40-60); Potassium 4.8 mmol/L (3.5-5.1); Sodium 143 mmol/L (136-145); Total Protein 7.2 g/dL (6.4-8.2); Triglyceride 104 mg/dL (<150)
== END 2024-06-13 10:50 | disposition home or self-care (01) ==
LOC: NCHCN 10:49
PROVIDERS: PCP Family Medicine; Visit Provider Family Medicine
DX: I10 Essential (primary) hypertension (principal); K25.9 Gastric ulcer, unspecified as acute or chronic, without hemorrhage or perforation
CPT/HCPCS: 80053; 80061; 85025

== ENCOUNTER 2024-06-18 01:15 | Outpatient (CLI) | payer MEDICARE, SELFPAY ==
--- NOTE | 2024-06-18 06:40 | DI.NM_ITS ---
Exam(s) NM HEPATOBILIARY CCK GRP EXAM: NM HEPATOBILIARY CCK GRP CLINICAL HISTORY: epigastric pain/fatty food intolerance/diarrhea,R10.13. TECHNIQUE: Injected dose: 4.8 mCi Tc-99 mebrofenin Initial dynamic images: 75 minutes Post-Gallbladder fillin.02 mcg/kg CCK intravenously over a 45 min infusion. Additional images: 85 minute dynamic during CCK administration. COMPARISON: CT CT CHEST/ABD/PEL W from 05/31/2024 US POCUS EXAM from 06/06/2024 FINDINGS: Normal hepatic transit time. Prompt excretion into the small bowel. Prompt excretion into the gallbladder. Gallbladder ejection fraction: 94 percent IMPRESSION: 1. Normal gallbladder ejection fraction of 94 percent.. SN guidelines: Gallbladder visualization should be present by 3 hours. Delayed bqvnlia-pq-nhmao isabel sit beyond 60 min raises the suspicion for partial common bile duct (CBD) obstruction. Gallbladder ejection fraction <35% has a good correlation with acalculous disease (i.e., chronic acal culous cholecystitis, cystic duct syndrome, sphincter of Oddi disease).
[2024-06-18] MEDS: Sincalide 5 MCG VIAL 1.4 MCG IJ (10:03)
== END 2024-06-18 01:35 ==
LOC: DI 01:15
PROVIDERS: PCP Family Medicine; Visit Provider Surgery
DX: R10.13 Epigastric pain (principal)
CPT/HCPCS: 78227; J2805

== ENCOUNTER → 2024-06-20 12:48 | Outpatient (BNVA) | payer MEDICARE, SELFPAY | PROVIDERS: PCP Family Medicine; Referring Provider Family Medicine; Visit Provider Surgery | DX: R10.12 Left upper quadrant pain (principal); R10.13 Epigastric pain | CPT/HCPCS: 99214 ==

== ENCOUNTER → 2025-07-07 12:49 | Outpatient (BNVA) | payer MEDICARE, SELFPAY | PROVIDERS: PCP Family Medicine; Referring Provider Family Medicine; Visit Provider Student in an Organized Health Care Education/Training Program | DX: K62.89 Other specified diseases of anus and rectum (principal) | CPT/HCPCS: 99213 ==

== ENCOUNTER 2025-07-16 03:50 | Outpatient (CLI) | payer MEDICARE, SELFPAY ==
[2025-07-16 13:56] LABS: Abs Immature Grans 0.02 10^3/uL (0.0-0.06); HCT 42.8 % (36.0-46.0); HGB 14.1 g/dL (11.2-15.7); Immature Grans % 0.3 %; MCH 31.0 pg (27.0-33.0); MCHC 32.9 % (32.0-36.0); MCV 94 fL (80-95); MPV 9.6 fL (8.0-11.0); Platelet Count 277 10^3/uL (130-400); RBC 4.55 10^6/uL (3.93-5.22); RDW 12.8 % (11.7-14.6); RDW-SD 44.1 fL; WBC 7.62 10^3/uL (4.4-10.8)
[2025-07-16 14:13] LABS: ALT 47 U/L (14-59); AST 21 U/L (15-37); Albumin 3.6 g/dL (3.4-5.0); Alkaline Phosphatase 92 U/L (46-116); Anion Gap 7.0 mmol/L (3-11); BUN 12 mg/dL (7-18); Bilirubin, Total 0.3 mg/dL (0.2-1.0); CO2 28.0 mmol/L (21.0-32.0); Calcium 9.1 mg/dL (8.5-10.1); Chloride 102 mmol/L (98-107); Estimated GFR 59.71 (mL/min/1.73m2); Glucose 105 mg/dL (74-106); LDH 153 U/L (81-234); Potassium 4.1 mmol/L (3.5-5.1); Sodium 137 mmol/L (136-145); Total Protein 6.7 g/dL (6.4-8.2)
== END 2025-07-16 03:51 | disposition home or self-care (01) ==
LOC: LBO 03:50
PROVIDERS: PCP Family Medicine; Visit Provider Internal Medicine Hematology & Oncology
DX: C82.99 Follicular lymphoma, unspecified, extranodal and solid organ sites (principal)
CPT/HCPCS: 36415; 80053; 83615; 85025

== ENCOUNTER 2025-07-22 02:17 | Outpatient (CLI) | payer MEDICARE, SELFPAY ==
--- NOTE | 2025-07-22 | DI.US_ITS ---
Exam(s) US SOFT TISSUE EXTREMITY EXAM: US SOFT TISSUE EXTREMITY CLINICAL HISTORY: LOCALIZED SWELLING, MASS AND LUMP, R UPPER LIMB, R22.31. TECHNIQUE: Ultrasound was performed using standard protocol. COMPARISON: No exams were available for comparison FINDINGS: Sonographic assessment utilizing grayscale and color Doppler imaging was performed and targeted to the area of clinical concern at the right upper arm. Palpable abnormality corresponds to homogeneous circumscribed fatty echogenicity lesion consistent with a simple lipoma. There is no vascularity. It measures 4.1 x 0.6 x 2.7 cm. IMPRESSION: Palpable abnormality in the upper arm is consistent with a lipoma. DATA REPOSITORY:
== END 2025-07-22 02:37 ==
LOC: DI 02:18
PROVIDERS: PCP Family Medicine; Visit Provider Family Medicine
DX: D17.21 Benign lipomatous neoplasm of skin and subcutaneous tissue of right arm (principal)
CPT/HCPCS: 76881

== ENCOUNTER → 2025-08-04 07:58 | Outpatient (BNVA) | payer MEDICARE, SELFPAY | PROVIDERS: PCP Family Medicine; Referring Provider Family Medicine; Visit Provider Student in an Organized Health Care Education/Training Program | DX: D17.21 Benign lipomatous neoplasm of skin and subcutaneous tissue of right arm (principal) | CPT/HCPCS: 99213 ==

== ENCOUNTER 2025-08-08 10:11 | Day surgery (SDC) | payer MEDICARE, SELFPAY ==
[2025-08-08 10:54] VITALS: BP 141/97; PULSE 64; RESP 16; TEMP 36.4; O2SAT 99
[2025-08-08] MEDS: Lactated Ringers 1,000 ML 80 ML IV (11:11)
--- NOTE | 2025-08-08 12:07 | W.ANESPRE ---
General Info Date of Service Date Performed: 08/08/25 Height: 5 ft 5 in Weight: 92.2 kg Body Mass Index (BMI): 33.8 Surgical Procedure: Operation Date: 08/08/25 12:40 Proposed Procedure Side Surgeon p Excision of Soft Tissue Mass of Upper Extremity Right Aleyda Lozano MD Meds Allergies and Home Medications Allergies Allergy/AdvReac Type Severity Reaction Status Date / Time penicillin V potassium (From Allergy Severe Anaphylaxsi Verified 08/08/25 10:53 Maricruz Cao) s Home Medication Medication Instructions Recorded acetaminophen 500 mg tablet 1,000 mg PO Q 8 HR 10/26/17 gabapentin 600 mg tablet 600 mg PO BID 10/26/17 promethazine 25 mg tablet 25 mg PO PRN 10/26/17 ropinirole 1 mg tablet 1 mg PO HS 10/26/17 bismuth subsalicylate 262 mg/15 mL 524 mg PO Q30-60M PRN 11/07/19 oral suspension (Pepto-Bismol) clonazepam 1 mg tablet 1 mg PO BID 05/21/24 methylphenidate HCl 20 mg tablet 20 mg PO BID 07/03/25 omeprazole 40 mg capsule,delayed 40 mg PO DAILY 07/03/25 release ibuprofen 800 mg tablet 800 mg PO Q8H PRN 08/04/25 Current Visit Medications: Current Medications Generic Name Dose Route Start Last Admin Trade Name Freq PRN Reason Stop Dose Admin Ringer's Solution 1,000 mls @ 80 mls/hr 08/08/25 06:00 08/08/25 11:11 IV 08/08/25 23:59 80 mls/hr INFUSION SJ Administration Cefazolin Sodium/Dextrose 2 gm in 50 mls @ 100 mls/hr 08/08/25 06:00 Ancef Duplex IVPB 08/08/25 23:59 PREOP SJ IV Miscellaneous Supplies 1 each 08/08/25 06:00 Iv Access IV 08/08/25 23:59 DIRECTED SJ Sodium Chloride 0 ml 08/08/25 06:00 Normal Saline Flush 10 Ml Syr IV 08/08/25 23:59 PRN PRN Sodium Chloride 0 ml 08/08/25 06:00 Normal Saline 10 Ml Vial IJ 08/08/25 23:59 DIRECTED PRN Sterile Water 0 ml 08/08/25 06:00 Water,Injection,Sterile 10 Ml Vial IJ 08/08/25 23:59 DIRECTED PRN PFSH Active Problems Active Problems: Problem Status Onset Code Lipoma of right upper extremity Acute D17.21 Abdominal pain, chronic, epigastric Acute R10.13, G89.29 Steatosis Acute E88.89 Fatty food intolerance Acute K90.49 Chronic diarrhea Acute K52.9 Smoker Acute F17.200 GERD (gastroesophageal reflux disease) Chronic K21.9 Epigastric pain Acute R10.13 Medical History Medical History Gastroesophageal reflux disease with esophagitis Insomnia Crohn's disease COPD (chronic obstructive pulmonary disease) On 2L 02 continuous Hypothyroidism Pt. is unsure if she has this PTSD (post-traumatic stress disorder) Pt. states no potential triggers at this time Carpal tunnel syndrome Spondylosis Asthma Anxiety Restless leg syndrome Obstructive sleep apnea Does not use device Hip pain Neck pain, chronic Metal and rods in neck per pt. ADD (attention deficit disorder) Surgical History Surgical History History of esophagogastroduodenoscopy (~05/2024) History of colonoscopy (~05/2024) S/P hysterectomy Status post breast reduction Tobacco Smoking/Tobacco Use Status: Current every day Tobacco Type: cigarettes Passive smoking exposure: Yes Alcohol Alcohol Intake: never Substance Use Substance use: Daily Substance use type: marijuana Details: Last smoked marijuana Vital Signs and Lab Results Vital Signs Most Recent Vital Signs in EMR: Most Recent Vital Signs Temp Pulse Resp BP Pulse Ox 36.4 C L 64 16 141/97 H 99 08/08/25 10:54 08/08/25 10:54 08/08/25 10:54 08/08/25 10:54 08/08/25 10:54 Lab Results Complete Blood Count: WBC, (4.4-10.8) 7.62 10^3/uL 07/16/25, 13:50 RBC, (3.93-5.22) 4.55 10^6/uL 07/16/25, 13:50 Hgb, (11.2-15.7) 14.1 g/dL 07/16/25, 13:50 Hct, (36.0-46.0) 42.8 % 07/16/25, 13:50 Plt Count, (130-400) 277 10^3/uL 07/16/25, 13:50 Complete Metabolic Panel: Sodium, (136-145) 137 mmol/L 07/16/25, 13:50 Potassium, (3.5-5.1) 4.1 mmol/L 07/16/25, 13:50 Chloride, (98-107) 102 mmol/L 07/16/25, 13:50 Carbon Dioxide, (21.0-32.0) 28.0 mmol/L 07/16/25, 13:50 BUN, (7-18) 12 mg/dL 07/16/25, 13:50 Creatinine, (0.55-1.02) 1.1 mg/dL H 07/16/25, 13:50 Est GFR (CKD-EPI 2020), (mL/min/1.73m2) 59.71 07/16/25, 13:50 Calcium, (8.5-10.1) 9.1 mg/dL 07/16/25, 13:50 Albumin, (3.4-5.0) 3.6 g/dL 07/16/25, 13:50 Glucose, (74-106) 105 mg/dL 07/16/25, 13:50 Liver Function Panel: ALT, (14-59) 47 U/L 07/16/25, 13:50 AST, (15-37) 21 U/L 07/16/25, 13:50 Anesthesia Assessment and Plan Anesthesia History Personal History: No History of Anesthesia Complications Family History: No Family History of Anesthesia Complications Exercise Tolerance Exercise Tolerance: Metabolic Equivalents<4 Pertinent Negatives Pertinent Negatives: No Major Cardiovascular Symptoms or Complaints and No Major Pulmonary Symptoms or Complaints Cardiac & Pulmonary Exam Cardiac Exam: Normal S1/S2 Heart Sounds Pulmonary Exam: Clear Bilateral Breath Sounds Implantable Cardiac Device Does patient have a Pacemaker or an ICD?: No Airway Exam Known Difficult Airway: No Mallampati Class: 2 Mouth Opening: Normal (> 3cm) Thyromental Distance: Greater than 3 cm Neck Range of Motion: Full ROM Neck Circumference: Normal Teeth Condition: Normal Dentition (Reports some radiation damage) ASA Classification ASA Score: ASA 3 Emergency Case?: No NPO Status NPO Status: NPO Clears >2 hours, Solids >8 hours Status Status: History of Hysterectomy Anesthesia Plan Resuscitation Status: Full Code Anesthesia Technique: General Anesthesia Airway Planned: Natural Airway Monitors Used: Standard Monitors
[2025-08-08 12:19] VITALS: BMI 33.8
[2025-08-08] MEDS: ceFAZolin 2 GM/50 ML BAG IVPB (12:38)
[2025-08-08] MEDS: Bupivacaine 0.5% Pres-Free W/EPI 30 ML VIAL (12:52)
--- NOTE | 2025-08-08 12:58 | SOFT_PTH ---
PATIENT: Sade Zavala LOC: [facility] U#:[id number] AGE/SX: 54/F ROOM: RE08/08/[address]: Aleyda Lozano : 1970 BED: DIS: 08/08/2025 SPEC #: [id number] RECD: 08/08/25 16:24 STATUS: QAMAR REQ #: [id number] ROSALVA: 08/08/25 12:[address]: Aleyda Lozano DEPT: Surgical Specimen RECD BY: Gali Gardner ENTERED: 08/08/25 16:25 SP TYPE: SOFT OTHR DR: Elvira Curiel Tissues: 1 - SOFT TISSUE MISC (INC. LIPOMA) Procedures: GROSS AND MICRO LEVEL 3 Comments: [id number]
[2025-08-08 13:15] VITALS: BP 128/92; PULSE 69; RESP 18; TEMP 36.4; O2SAT 96
--- NOTE | 2025-08-08 13:15 | W.PM.DSUDISC ---
Date of service: 08/08/25 Discharge Plan Disposition Patient Disposition: Home Condition: Good Discharge Details Reason For Visit: Soft tissue mass of RUE Attending Provider: Aleyda Lozano Primary Care Provider: Elvira Curiel Recommendations for Follow Up Recommended tests to be ordered by follow up provider: Follow up pathology Home Meds and New Rx's Prescriptions: Continued ibuprofen 800 mg tablet 800 mg PO Q8H PRN bismuth subsalicylate [Pepto-Bismol] 262 mg/15 mL suspension 524 mg PO Q30-60M PRN gabapentin 600 MG tablet 600 mg PO BID ropinirole 1 MG tablet 1 mg PO HS acetaminophen 500 MG tablet 1,000 mg PO Q 8 HR promethazine 25 MG tablet 25 mg PO PRN methylphenidate HCl 20 mg tablet 20 mg PO BID omeprazole 40 mg capsule,delayed release(DR/EC) 40 mg PO DAILY clonazepam 1 mg tablet 1 mg PO BID Patient Comments: TAKE 1 TABLET BY MOUTH TWICE DAILY DIRECTED FOR ANXIETY Discharge Instructions Instructions: Surgical Wound (DC) Additional Instructions: Your procedure went well today. The presumed lipoma on your arm was removed in its entirety without difficulty. You have steri-strips or little bandaids over your incision. These will peel off on their own in 10-14 days. Do not peel them off. Your sutures are all absorbable. You can shower in 24hrs and allow warm soapy water to run over your incision. Refrain from heavy lifting >20 lbs with your right arm for 3-4 days. For pain control please alternate between tylenol and ibuprofen as necessary. You may also apply ice to your incision as needed for pain. Stand Alone Forms: Anesthesia Discharge InstKathrin De Leon (DSU) Activity:: Activity as Tolerated Remove Dressings/Wound Care:: Do Not Remove Shower/Bathe:: 24 hours Diet:: As Tolerated Discharge Orders Discharge Orders: Discharge Order (Routine); Ordered 08/08/25 Ordered By: Aleyda Lozano
--- NOTE | 2025-08-08 13:19 | W.PM.OP ---
Operative Note Operative Note PRE-OP DIAGNOSIS: Soft tissue mass of right upper extremity POST-OP DIAGNOSIS: same PROCEDURE: Excision of soft tissue mass of right upper extremity SURGEON: Aleyda Lozano ANESTHESIA TYPE: Local By Surgeon and General:No Airway Refer to Anesthesia Record ESTIMATED BLOOD LOSS: 2 PATHOLOGY: other (Soft tissue mass of right upper extremity ) COMPLICATIONS: None Patient was transported to: PACU Patient's condition: stable Implants: None. Indications: Patient is a 54-year-old female presenting to the clinic due to a soft tissue mass of her right upper extremity. She had an ultrasound of this mass which was concerning for a lipoma. She would like it excised due to its increase in size and associated pain. The risks and benefits of the procedure were discussed with her and consent was obtained prior to the procedure. Findings: Incision made over the soft tissue mass of the right upper extremity. The presumed lipoma was excised in its entirety and sent to pathology. Hemostasis achieved. Incision closed in layers and dressing applied. Procedure Description: After initiation of anesthesia the patient was then prepped and draped in sterile fashion. Prior to incision, an additional timeout was performed, which again confirmed the patient's name, date of , and the procedure to be performed, including laterality, and antibiotics given. The procedure was initiated by injecting local anesthesia into the preplanned incision. A 4.5cm incision was then made sharply with a scalpel. Dissection was carried down through subcutaneous tissue. The superficial soft tissue mass was identified and removed with a combination of blunt and sharp dissection. The specimen measured around 4 x 2 cm and was sent to pathology. Hemostasis was achieved in the incision with electrocautery. The incision was then closed in layers first with a deep dermal interrupted 3-0 Vicryl suture. The skin was then reapproximated with a running 4-0 subcuticular Monocryl. The incision was cleaned and dried. Skin glue and Steri-Strips were then applied to the incision. At this point, the patient was awoken and transported to the recovery room in stable condition. Sponge and instrument counts were correct. She tolerated the procedure well. Date of Procedure: 08/08/25
--- NOTE | 2025-08-08 13:32 | W.ANESPOSTOP ---
Postoperative Evaluation Date, Time and Location Date Performed: 08/08/25 Time Performed: 13:15 Patient Location: Day Surgery Unit Vital Signs Most Recent Imported Vital Signs: Most Recent Vital Signs Temp Pulse Resp BP Pulse Ox 36.4 C L 69 18 128/92 H 96 08/08/25 13:15 08/08/25 13:15 08/08/25 13:15 08/08/25 13:15 08/08/25 13:15 Pain Score Most Recent Pain Score: Most Recent Pain Score Pain Level 0 08/08/25 13:15 Assessment Mental Status: Awake (Alert & Oriented to Patient Baseline) Airway and Respiratory Function: Patent airway with normal (patient baseline) respiratory exam Cardiovascular Function: Hemodynamically Stable Hydration Status: Adequately Hydrated Nausea & Vomiting: No Nausea or Vomiting Pain: Pt. Denies Any Pain Peripheral Nerve Block: Patient did not receive a nerve block
[2025-08-08 13:40] VITALS: BP 136/94; PULSE 67; RESP 16; TEMP 36.1; O2SAT 100
== END 2025-08-08 13:55 | disposition home or self-care (01) ==
PROVIDERS: PCP Family Medicine; Visit Provider Student in an Organized Health Care Education/Training Program
PROC: (CPT 24071; principal; 2025-08-08 12:30)
DX: D17.21 Benign lipomatous neoplasm of skin and subcutaneous tissue of right arm (principal); K21.00 Gastro-esophageal reflux disease with esophagitis, without bleeding; F17.210 Nicotine dependence, cigarettes, uncomplicated; J44.9 Chronic obstructive pulmonary disease, unspecified
CPT/HCPCS: 24071; 88304; J0690; J1885; J2003; J2250; J2405; J2704

== ENCOUNTER 2025-08-19 11:30 | Emergency (ER) | payer MEDICARE, SELFPAY ==
[2025-08-19] VITALS (20 sets, daily range): BP systolic 149–167; BP diastolic 92–120; PULSE 58–94; RESP 12–22; TEMP 36.3–36.7; O2SAT 91–98
[2025-08-19] MEDS: ACETAMINOPHEN 1,000 MG/100 ML BAG 400 MG IVPB (12:18)
[2025-08-19] MEDS: Ketorolac 15 MG/ML VIAL IVP (12:23)
[2025-08-19 12:24] LABS: Abs Immature Grans 0.01 10^3/uL (0.0-0.06); HCT 45.4 % (36.0-46.0); HGB 15.3 g/dL (11.2-15.7); Immature Grans % 0.2 %; MCH 31.2 pg (27.0-33.0); MCHC 33.7 % (32.0-36.0); MCV 93 fL (80-95); MPV 9.9 fL (8.0-11.0); Platelet Count 277 10^3/uL (130-400); RBC 4.91 10^6/uL (3.93-5.22); RDW 13.1 % (11.7-14.6); RDW-SD 44.6 fL; WBC 6.38 10^3/uL (4.4-10.8)
[2025-08-19] MEDS: Normal Saline 1,000 ML 1000 ML IV (12:24)
[2025-08-19] MEDS: CIPROFLOXACIN 400 MG/200 ML BAG 200 MG IVPB (12:25)
[2025-08-19] MEDS: Prochlorperazine 10 MG/2 ML VIAL 5 MG IVP (12:27)
[2025-08-19] MEDS: metroNIDAZOLE 500 MG/100 ML BAG 100 MG IVPB (12:27)
[2025-08-19 13:16] LABS: Lipase 29 U/L (<53)
[2025-08-19 13:18] LABS: ALT 52 U/L (10-49); AST 38 U/L (<34); Albumin 4.8 g/dL (3.4-5.0); Alkaline Phosphatase 89 U/L (46-116); Anion Gap 2.2 mmol/L (3-11); BUN 10 mg/dL (9-23); Bilirubin, Total 0.50 mg/dL (0.2-1.2); CO2 25.8 mmol/L (20.0-31.0); Calcium 9.5 mg/dL (8.3-10.6); Chloride 111 mmol/L (98-107); Glucose 88 mg/dL (74-106); Potassium 3.9 mmol/L (3.5-5.1); Sodium 139 mmol/L (136-145); Total Protein 7.5 g/dL (5.7-8.2)
[2025-08-19] MEDS: MORPHine 10 MG/ML VIAL 2 MG IVP (13:34)
[2025-08-19 13:48] LABS: Glucose Negative (Negative)
[2025-08-19 13:57] LABS: C & S Indicated? No; RBC 0-2 HPF (0-2); WBC Negative HPF (0-5)
--- NOTE | 2025-08-19 14:08 | DI.CT_ITS ---
Exam(s) CT ABDOMEN PELVIS W EXAM: CT ABDOMEN PELVIS W CLINICAL HISTORY: ?appy. TECHNIQUE: Imaging Protocol: Axial computed tomography images with coronal and sagittal reformatted images were created and reviewed CONTRAST MATERIAL: Intravenous: Omnipaque 350 Contrast volume:75 ml Oral: no COMPARISON: CT CT CHEST/ABD/PEL W from 05/31/2024 FINDINGS: ABDOMEN and PELVIS: Lung Bases: No acute findings. Liver: Hepatic steatosis. No suspicious mass. Gallbladder and biliary tract: No radiodense calculus. No wall thickening or pericholecystic fluid. No biliary dilation. Pancreas: Normal density. No abnormal calcifications or inflammatory process. No evidence of mass. Spleen: Normal. Kidneys: Normal size, contour and axis. No radiodense stones. No obstructive uropathy. No suspicious masses seen. Adrenal glands: No masses seen. Vasculature: Abdominal aorta non-dilated. Soft tissues: Unremarkable. Bladder: No gross wall thickening. No calculi.No focal mass. Bowel: The stomach is contracted and not well evaluated. No obstruction. No bowel wall thickening. Appendix normal. Mild diverticulosis. Normal quantity of stool. Peritoneal cavity: No ascites. No focal collection. No mesenteric inflammatory response. No free air. Bones: Posterior fusion hardware at L5-S1 and laminectomy. Disc bulging at L3-4 and L4-5. Reproductive organs: Hysterectomy. Lymph nodes: No pathologically enlarged lymph nodes. IMPRESSION:: No acute abnormality in the abdomen or pelvis. RADIATION DOSE DELIVERED: Total DLP DATA REPOSITORY: All CT scans at this facility are submitted to the National Radiology Data Registry (NRDR) Dose Index Registry (DIR) with the [employer] ([employer]). RADIATION OPTIMIZATION: All CT scans at this facility use at least one of these dose optimization techniques: automated exposure control; mA and/or kV adjustment per patient size (includes targeted exams where dose is matched to clinical indication); or iterative reconstruction.
--- NOTE | 2025-08-19 14:38 | W.ED.GENAD ---
Discharge Plan Disposition Patient Disposition: Home Condition: Stable Discharge Details Clinical Impression: Abdominal pain of unknown cause Primary Care Provider: Elvira Curiel ED Provider: Rodrick Atwood Home Meds and New Rx's Prescriptions: No Action ibuprofen 800 mg tablet 800 mg PO Q8H PRN bismuth subsalicylate [Pepto-Bismol] 262 mg/15 mL suspension 524 mg PO Q30-60M PRN gabapentin 600 MG tablet 600 mg PO BID ropinirole 1 MG tablet 1 mg PO HS acetaminophen 500 MG tablet 1,000 mg PO Q 8 HR promethazine 25 MG tablet 25 mg PO PRN methylphenidate HCl 20 mg tablet 20 mg PO BID omeprazole 40 mg capsule,delayed release(DR/EC) 40 mg PO DAILY clonazepam 1 mg tablet 1 mg PO BID Patient Comments: TAKE 1 TABLET BY MOUTH TWICE DAILY DIRECTED FOR ANXIETY Discharge Instructions Instructions: Oxycodone, Abdominal Pain, Adult ED Additional Instructions: You were seen in the emergency department for your abdominal pain of unknown cause, there is no elevation of white blood cells or other major abnormalities on your laboratory workup and your CAT scan is normal. This still could be a very early appendicitis, I want you to keep taking Tylenol and Motrin [id number] as well as the breakthrough oxycodone that we have provided and continue your Zofran, please return for any failure to resolve or worsening. Stand Alone Forms: Portal Information Referrals: Elvira Curiel [Primary Care Provider, Medicine] Discharge Data Discharge Date/Time-TO BE ENTERED AT DEPARTURE: 08/19/25 15:18 HPI General Date/Time Provider Initiated Documentation: 08/19/25 11:39. HPI Narrative: 54 year-old female presents to ED today by POV/ambulating with a chief complaint of RLQ abdominal pain- sent by [facility] for appendicitis ruleout with onset since the middle of the night last night. Quality described as generalized pain last night around the umbilicus then migrated to RLQ, no radiation to fever, endorses anorexia, nausea, no vomiting, denies shortness of breath, chest pain, denies urinary changes. Severity is described as severe. Palliating factors include OTC analgesics not helping. Provoking factors include certain movements. Events leading up to the incident/Associated Symptoms: Patient has had hysterectomy. Patient not anticoagulated. Related Data Home Medications Medication Instructions Recorded Confirmed acetaminophen 500 mg tablet 1,000 mg PO Q 8 HR 10/26/17 08/19/25 gabapentin 600 mg tablet 600 mg PO BID 10/26/17 08/19/25 promethazine 25 mg tablet 25 mg PO PRN 10/26/17 08/19/25 ropinirole 1 mg tablet 1 mg PO HS 10/26/17 08/19/25 bismuth subsalicylate 262 mg/15 mL 524 mg PO Q30-60M PRN 11/07/19 08/19/25 oral suspension (Pepto-Bismol) clonazepam 1 mg tablet 1 mg PO BID 05/21/24 08/19/25 methylphenidate HCl 20 mg tablet 20 mg PO BID 07/03/25 08/19/25 omeprazole 40 mg capsule,delayed 40 mg PO DAILY 07/03/25 08/19/25 release ibuprofen 800 mg tablet 800 mg PO Q8H PRN 08/04/25 08/19/25 Allergies Allergy/AdvReac Type Severity Reaction Status Date / Time penicillin V potassium (From Allergy Severe Anaphylaxsi Verified 08/19/25 11:37 Jatinder-Ashley Cao) s General Stated Complaint: Abd Prob AYESHA: 3 Review of Systems All systems reviewed & are unremarkable except as noted in HPI and below Exam Narrative Exam Narrative: GENERAL APPEARANCE: Well-nourished, non-toxic, awake and alert, atraumatic, moderate acute distress. SKIN: Warm, pink, dry, intact, without rashes/lesions/ulcerations. HEAD: Normocephalic, atraumatic, normal hair distribution for gender/age. EYES: Normal conjunctiva, no exudates on lids/lashes. ENT: Nares patent, no circumoral cyanosis, no facial swelling NECK: Supple, trachea midline, painless cervical ROM. LUNGS/CHEST: Lungs CTA bilaterally-no rhonchi/rales/wheeze diffusely, non-labored respirations, normal A/P diameter, symmetrical expansion, no chest wall deformity HEART (CV/PV): Regular rate and rhythm without murmur, no peripheral edema, no JVD. ABDOMEN: Normoactive bowel sounds, soft, non-distended, no guarding, exquisite right lower quadrant tenderness with rebound tenderness at McBurney's point, positive Rovsing's, positive psoas and obturator, no CVA tenderness to percussion bilaterally. MSK: Normal ROM, no swelling/deformity to bilateral UEs or LEs, moving all extremities without weakness, no cyanosis, spine midline without tenderness, normal curvature. NEURO: Mental Status AAOx4 - alert to person, place, time, events No facial droop, no forehead involvement. Motor: No focal weakness - strength 5/5 in bilateral UEs and LEs, proximal and distal, symmetric. Sensory: sensation intact to light touch globally. Gait normal: patient ambulated without ataxia into ED room. PSYCH: euthymic, cooperative, pleasant, appropriate speech Course Vital Signs Vital signs: Vital Signs Temperature 36.7 C 08/19/25 11:33 Pulse 72 08/19/25 11:33 Respiratory Rate 18 08/19/25 11:33 Blood Pressure 167/116 H 08/19/25 11:33 Pulse Oximetry 98 08/19/25 11:33 Temperature 36.7 C 08/19/25 11:33 Pulse 72 08/19/25 11:33 Respiratory Rate 18 08/19/25 11:33 Blood Pressure 167/116 H 08/19/25 11:33 Pulse Oximetry 98 08/19/25 11:33 Pain Level 9 08/19/25 13:34 Lab/Test Results Lab/Test Results: 08/19/25 13:17 Blood Blood Culture - Pending 08/19/25 12:50 Blood Blood Culture - Pending Laboratory Tests Range/Units 08/19/25 08/19/25 12:10 12:45 WBC (4.4-10.8) 10^3/uL 6.38 RBC (3.93-5.22) 10^6/uL 4.91 Hgb (11.2-15.7) g/dL 15.3 Hct (36.0-46.0) % 45.4 MCV (80-95) fL 93 MCH (27.0-33.0) pg 31.2 MCHC (32.0-36.0) % 33.7 RDW (11.7-14.6) % 13.1 Plt Count (130-400) 10^3/uL 277 MPV (8.0-11.0) fL 9.9 Immature Gran % % 0.2 Neutrophils % % 52.1 Lymphocytes % % 40.9 Monocytes % % 5.3 Eosinophils % % 0.9 Basophils % % 0.6 Nucleated RBC % (0.0-0.3) % 0.0 Absolute Neutrophils (1.2-6.7) 10^3/uL 3.32 Absolute Lymphocytes (1.2-3.4) 10^3/uL 2.61 Absolute Monocytes (0.1-0.8) 10^3/uL 0.34 Absolute Eosinophils (0.0-0.7) 10^3/uL 0.06 Absolute Basophils (0.0-0.2) 10^3/uL 0.04 VBG Lactate (<or=2.0) mmol/L 1.8 Sodium (136-145) mmol/L 139 Potassium (3.5-5.1) mmol/L 3.9 Chloride (98-107) mmol/L 111 H Carbon Dioxide (20.0-31.0) mmol/L 25.8 Anion Gap (3-11) mmol/L 2.2 L BUN (9-23) mg/dL 10 Creatinine (0.55-1.02) mg/dL 1.0 Est GFR (CKD-EPI 2020) (mL/min/1.73m2) 60.36 Glucose (74-106) mg/dL 88 Calcium (8.3-10.6) mg/dL 9.5 Total Bilirubin (0.2-1.2) mg/dL 0.50 AST (<34) U/L 38 H ALT (10-49) U/L 52 H Alkaline Phosphatase (46-116) U/L 89 Total Protein (5.7-8.2) g/dL 7.5 Albumin (3.4-5.0) g/dL 4.8 Lipase (<53) U/L 29 Urine Color (Yellow) Yellow Urine Clarity (Clear) Clear Urine pH (5-8) 5.5 Ur Specific [place] (1.005-1.025) 1.010 Urine Protein (Neg-Trace) mg/dL Negative Urine Ketones (Negative) mg/dL Negative Urine Blood (Negative) Trace-intact H Urine Nitrite (Negative) Negative Urine Bilirubin (Negative) Negative Urine Urobilinogen (Up to 0.2) mg/dL 0.2 Ur Leukocyte Esterase (Negative) Negative Urine RBC (0-2) HPF 0-2 Urine WBC (0-5) HPF Negative Ur Epithelial Cells (Negative) HPF Rare Urine Crystals (Negative) HPF Negative Urine Bacteria (Negative) HPF Negative Urine Casts (Negative) LPF Negative Urine Mucus (Negative) Negative Ur Culture Indicated? No Urine Glucose (Negative) mg/dL Negative Medical Decision Making This dictation utilizes [id number] dictation software and may contain unedited grammatical errors. 54 year-old female presents to ED today by POV/ambulating with a chief complaint of RLQ abdominal pain- sent by [facility] for appendicitis ruleout with onset since the middle of the night last night. Quality described as generalized pain last night around the umbilicus then migrated to RLQ, no radiation to fever, endorses anorexia, nausea, no vomiting, denies shortness of breath, chest pain, denies urinary changes. Severity is described as severe. Palliating factors include OTC analgesics not helping. Provoking factors include certain movements. Events leading up to the incident/Associated Symptoms: Patient has had hysterectomy. Patients' medical history: History of chronic abdominal pain, chronic diarrhea, GERD, Crohn's disease, COPD, asthma, anxiety. Family and social history: Noncontributory. Pertinent exam findings / vital signs include tenderness at McBurney's point with rebound tenderness, Rovsing's, positive psoas and obturator sign-physical exam improved after pain medications, no right upper quadrant tenderness, negative Crooks sign, benign cardiopulmonary status, nontoxic vitals. Differential / pathologies of concern include appendicitis, SBO, gastroenteritis, gastritis, Crohn's. Diagnostic studies of: - CBC, CMP, lactate, lipase, UA, blood cultures, CT ABD/pelvis with contrast. - CBC shows no leukocytosis - Lactate negative - CMP is unremarkable - Lipase within normal limits - UA with trace blood otherwise benign - Blood cultures pending - CT shows no acute pathology Interventions of: - 50 mg IV ketorolac, 5 mg IV Compazine, 1 g IV Tylenol, 1 L IVF NS, 1 dose Cipro Flagyl IV, 2 mg morphine as needed X1. #4 tab oxycodone to-go. ED Course/Assessment/Plan: 54-year-old female presents with right lower quadrant migratory abdominal pain onset last night, despite her exam being very consistent with appendicitis her CT shows no acute appendicitis and her labs are very reassuring, this may be gastroenteritis or gas pain, she did improve throughout the visit there is no evidence of any Crohn's flare on her CT, I discussed with her that this is perhaps very early appendicitis and has not been self and labs and imaging it that she may need to return in the next couple days for reevaluation. She was comfortable with this and was given some analgesics to take home otherwise stable at discharge with improved pain. Findings not consistent with acute appendicitis, sepsis, SBO, perforated viscus, peritonitis. Disposition of abdominal pain of unknown cause. Patient verbalized understanding of the plan and return to ED criteria and engaged in shared decision making. Medical Records Medical records reviewed: Yes I reviewed the patient's medical records. Imaging Data Radiologic Study: Attestation: I personally reviewed and interpreted this imaging study as follows: Imaging: CT Scan Radiologist's impression: EXAM: CT ABDOMEN PELVIS W CLINICAL HISTORY: ?appy. TECHNIQUE: Imaging Protocol: Axial computed tomography images with coronal and sagittal reformatted images were created and reviewed CONTRAST MATERIAL: Intravenous: Omnipaque 350 Contrast volume:75 ml Oral: no COMPARISON: CT CT CHEST/ABD/PEL W from 05/31/2024 FINDINGS: ABDOMEN and PELVIS: Lung Bases: No acute findings. Liver: Hepatic steatosis. No suspicious mass. Gallbladder and biliary tract: No radiodense calculus. No wall thickening or pericholecystic fluid. No biliary dilation. Pancreas: Normal density. No abnormal calcifications or inflammatory process. No evidence of mass. Spleen: Normal. Kidneys: Normal size, contour and axis. No radiodense stones. No obstructive uropathy. No suspicious masses seen. Adrenal glands: No masses seen. Vasculature: Abdominal aorta non-dilated. Soft tissues: Unremarkable. Bladder: No gross wall thickening. No calculi.No focal mass. Bowel: The stomach is contracted and not well evaluated. No obstruction. No bowel wall thickening. Appendix normal. Mild diverticulosis. Normal quantity of stool. Peritoneal cavity: No ascites. No focal collection. No mesenteric inflammatory response. No free air. Bones: Posterior fusion hardware at L5-S1 and laminectomy. Disc bulging at L3-4 and L4-5. Reproductive organs: Hysterectomy. Lymph nodes: No pathologically enlarged lymph nodes. IMPRESSION:: No acute abnormality in the abdomen or pelvis. Lab Data Lab results reviewed: Yes I reviewed the patient's lab results. Labs: 08/19/25 13:17 Blood Blood Culture - Pending 08/19/25 12:50 Blood Blood Culture - Pending Laboratory Tests Range/Units 11/11/25 11/11/25 12:10 12:45 WBC (4.4-10.8) 10^3/uL 6.38 RBC (3.93-5.22) 10^6/uL 4.91 Hgb (11.2-15.7) g/dL 15.3 Hct (36.0-46.0) % 45.4 MCV (80-95) fL 93 MCH (27.0-33.0) pg 31.2 MCHC (32.0-36.0) % 33.7 RDW (11.7-14.6) % 13.1 Plt Count (130-400) 10^3/uL 277 MPV (8.0-11.0) fL 9.9 Immature Gran % % 0.2 Neutrophils % % 52.1 Lymphocytes % % 40.9 Monocytes % % 5.3 Eosinophils % % 0.9 Basophils % % 0.6 Nucleated RBC % (0.0-0.3) % 0.0 Absolute Neutrophils (1.2-6.7) 10^3/uL 3.32 Absolute Lymphocytes (1.2-3.4) 10^3/uL 2.61 Absolute Monocytes (0.1-0.8) 10^3/uL 0.34 Absolute Eosinophils (0.0-0.7) 10^3/uL 0.06 Absolute Basophils (0.0-0.2) 10^3/uL 0.04 VBG Lactate (<or=2.0) mmol/L 1.8 Sodium (136-145) mmol/L 139 Potassium (3.5-5.1) mmol/L 3.9 Chloride (98-107) mmol/L 111 H Carbon Dioxide (20.0-31.0) mmol/L 25.8 Anion Gap (3-11) mmol/L 2.2 L BUN (9-23) mg/dL 10 Creatinine (0.55-1.02) mg/dL 1.0 Est GFR (CKD-EPI 2020) (mL/min/1.73m2) 60.36 Glucose (74-106) mg/dL 88 Calcium (8.3-10.6) mg/dL 9.5 Total Bilirubin (0.2-1.2) mg/dL 0.50 AST (<34) U/L 38 H ALT (10-49) U/L 52 H Alkaline Phosphatase (46-116) U/L 89 Total Protein (5.7-8.2) g/dL 7.5 Albumin (3.4-5.0) g/dL 4.8 Lipase (<53) U/L 29 Urine Color (Yellow) Yellow Urine Clarity (Clear) Clear Urine pH (5-8) 5.5 Ur Specific [place] (1.005-1.025) 1.010 Urine Protein (Neg-Trace) mg/dL Negative Urine Ketones (Negative) mg/dL Negative Urine Blood (Negative) Trace-intact H Urine Nitrite (Negative) Negative Urine Bilirubin (Negative) Negative Urine Urobilinogen (Up to 0.2) mg/dL 0.2 Ur Leukocyte Esterase (Negative) Negative Urine RBC (0-2) HPF 0-2 Urine WBC (0-5) HPF Negative Ur Epithelial Cells (Negative) HPF Rare Urine Crystals (Negative) HPF Negative Urine Bacteria (Negative) HPF Negative Urine Casts (Negative) LPF Negative Urine Mucus (Negative) Negative Ur Culture Indicated? No Urine Glucose (Negative) mg/dL Negative PFSH All Active Problems (Updated 08/19/25 @ 14:50 by JACLYN Gil) Abdominal pain of unknown cause (Acute) Lipoma of right upper extremity (Acute) Abdominal pain, chronic, epigastric (Acute) Steatosis (Acute) Fatty food intolerance (Acute) Chronic diarrhea (Acute) Smoker (Acute) GERD (gastroesophageal reflux disease) (Chronic) Epigastric pain (Acute) Medical History (Updated 08/19/25 @ 14:50 by JACLYN Gil) Gastroesophageal reflux disease with esophagitis Insomnia Crohn's disease COPD (chronic obstructive pulmonary disease) On 2L 02 continuous Hypothyroidism Pt. is unsure if she has this PTSD (post-traumatic stress disorder) Pt. states no potential triggers at this time Carpal tunnel syndrome Spondylosis Asthma Anxiety Restless leg syndrome Obstructive sleep apnea Does not use device Hip pain Neck pain, chronic Metal and rods in neck per pt. ADD (attention deficit disorder) Surgical History (Updated 08/12/25 @ 14:40 by Lian Mendez) Hx of excision of mass (~08/08/25) lipoma extremity History of esophagogastroduodenoscopy (~05/2024) History of colonoscopy (~05/2024) S/P hysterectomy Status post breast reduction Social History Smoking/Tobacco Use Status: Current every day Tobacco Type: cigarettes Smoking risk assessment performed?: Yes Alcohol Intake: never Drug use: Daily Substance use type: marijuana Details: Last smoked marijuana Housing: house Do you feel safe at home: Yes Do you feel safe in your relationship?: Yes
== END 2025-08-19 15:18 | disposition home or self-care (01) ==
PROVIDERS: Emergency Provider Physician Assistant; PCP Family Medicine
DX: R10.31 Right lower quadrant pain (principal); R11.0 Nausea
CPT/HCPCS: 80053; 83690; 87040; 96365; 96367; 96375; 99285; 74177; 81003; 81015; 83605; 85025; 99283; J0131; J0744; J0780; J1836; J1885; J2270